=== PATIENT | male | born 1990 | race Caucasian/White ===

== ENCOUNTER 2020-09-23 18:23 | Emergency (ER) | payer OTHER, SELFPAY ==
[2020-09-23 18:34] VITALS: BP 154/88; PULSE 72; RESP 14; TEMP 36.8; O2SAT 98; BMI 23.0
--- NOTE | 2020-09-23 18:38 | ED_ITS ---
HPI - Recheck/Abnormal Lab/Rx General Chief Complaint: Recheck/Abnormal Lab/Rx Stated Complaint: runny nose, dry throat, loss of sense of smell Time Seen by Provider: 09/23/20 18:38 Source: patient Mode of arrival: Ambulatory Limitations: no limitations History of Present Illness HPI narrative: 29M non smoker with no medical problems presents with mild headache, scratchy throat and loss of smell today. He is concerned about COVID. He denies known exposure. He's had no fever, chills, cough, or trouble breathing, in fact he's been skiing at [employer] this week and ran 7 miles yesterday without trouble. He's had no GI symptoms such as pain, N/V/D. He has travelled here from his home in [place] a week or so ago. He was driving with a few friends who commented on the strong smell from a marijuana shop and not iced that he couldn't smell it at all which caused him concern. Related Data Allergies Allergy/AdvReac Type Severity Reaction Status Date / Time No Known Drug Allergies Allergy Verified 09/23/20 18:37 Review of Systems Constitutional Constitutional: Denies chills, Denies fatigue, Denies fever(s), Denies frequent falls, Denies lethargy and Denies weakness Comments: headache Eyes Eyes: Denies change in vision, Denies eye discharge, Denies irritation and Denies loss of vision ENT Ears, Nose, Mouth, and Throat: Denies change in voice, Denies dizziness, Denies neck pain, Denies sore throat and Denies throat swelling Comments: loss of smell scratchy, but not painful throat Cardiovascular Cardiovascular: Denies chest pain, Denies irregular heart rhythm, Denies lightheadedness, Denies palpitations, Denies dyspnea, Denies dyspnea on exertion and Denies orthopnea Respiratory Respiratory: Denies cough, Denies dyspnea, Denies dyspnea on exertion and Denies wheezing Gastrointestinal Gastrointestinal: Denies abdominal pain, Denies change in bowel habits, Denies diarrhea, Denies nausea and Denies vomiting Musculoskeletal Musculoskeletal: Denies neck pain and Denies numbness Integumentary/Breasts Skin/Breast: Denies pruritus, Denies erythema, Denies rash and Denies wounds Neurologic Neurologic: Denies behavioral changes, Denies confusion, Denies dizziness, Denies frequent falls, Denies loss of vision, Denies numbness and Denies weakness Psychiatric Psychiatric: Denies anxiety, Denies behavioral changes, Denies confusion, Denies depression, Denies homicidal ideation and Denies suicidal ideation Endocrine Endocrine: Denies fatigue, Denies flushing and Denies palpitations Hematologic/Lymphatic Hematologic/Lymphatic: Denies easy bruising Allergic/Immunologic Allergic/Immunologic: Denies urticaria, Denies throat swelling and Denies wheezing Patient History Social History Smoking Status: Never smoker Smoking Status: Never smoker alcohol intake frequency: holidays/special occasions only Substance Use Type: does not use Exam Narrative Exam Narrative: GEN: AOx3 and in mild distress EYES: Pupils are equal, round, and reactive to light and accommodation. Extraoccular muscles are intact bilaterally. There is no subconjunctival hemorrhage or exudate. CHEST: Lungs are clear to auscultation bilaterally and free of wheezes, rales, or rhonchi. Heart rate is regular rhythm, there are no murmurs, clicks, rubs, or gallops. There is no chest wall tenderness. ABD: Abdomen is soft and nontender. There is no guarding or rebound. Bowel sounds are normal in all 4 quadrants. There is no mass or organomegaly. EXT: Full painless ROM of all extremities with no loss of sensation or strength. SKIN: Warm, pink, and dry. No erythema or rash Initial Vital Signs Initial Vital Signs: Vital Signs Temperature 98.2 F 09/23/20 18:34 Pulse Rate 72 09/23/20 18:34 Respiratory Rate 14 09/23/20 18:34 Blood Pressure 154/88 H 09/23/20 18:34 Pulse Oximetry 98 09/23/20 18:34 Course Orders Ordered: ED Orders 09/23/20 18:30 COVID19 Stat Vital Signs Vital signs: Vital Signs - 8 hr 09/23/20 18:34 Temperature 98.2 F Pulse Rate 72 Respiratory Rate 14 Blood Pressure 154/88 H Pulse Oximetry 98 MDM - Recheck/Abnormal Lab/Rx Lab Data Labs: Lab Results 09/23/20 Range/Units 18:30 COVID-19 PCR Positive H (Negative) MDM Narrative Medical decision making narrative: no significant risk factors. No respiratory complaints. Normal lung sounds and work of breathing. Normal labs. Extensive discussion with isolation protocol. Strongly encouraged not to fly until return to work criteria are met. He understands diagnosis and agrees with plan. Discharge Plan Departure Patient Disposition: Home Clinical Impression: COVID-19 Instructions: Coronavirus Disease 2019 Activity Restrictions/Additional Instructions: *You have been diagnosed with [ COVID-19] *What to do: Begin taking Aspirin 81mg daily to help decrease viral replication and some of the clotting problems associated with COVID *Please consider orderd a pulse ox to monitor your oxygen levels at home. A drop in oxygen level below 95% would indicate a need for re-evaluation * per recommendations from the CDC and the [facility] Department of Health * stay home except to get medical care. Restrict activities outside your home, except for getting medical care. Do not go to work, school, or public areas. Avoid using public transportation, ride sharing, or taxis. * separate yourself from other people in your home. * call ahead before visiting your doctor * Wear a facemask * Cover your coughs and sneezes * Clean your hands often * Avoid sharing household items * Clean all high-touch services every day * Monitor your symptoms and seek prompt medical attention if your illness is worsening, particularly with difficulty in breathing. You may discontinue your isolation when: 1. You have been fever-free for at least 24 hours without the use of fever reducing medication, AND 2. Your symptoms are getting better 3. At least 10 days have passed since symptoms first appeared Individuals with laboratory confirmed COVID-19 who have not had any symptoms may discontinue home isolation when at least 10 days have passed since the date of their first COVID-19 diagnostic test and have had no subsequent illness
--- NOTE | 2020-09-23 18:42 | PC.NURSE ---
Patient reports noticed loss of smell over last few days and wants to be checked for covid. Denies fever, chills, nausea, shortness or breath, or nasal congestion. Affirms sort of a scratchy throat but denies difficulty swallowing. Patient states I don't feel bad I ran 7 miles yesterday.
[2020-09-23 19:01] LABS: COVID19 -Nasal RAPID POSITIVE (Negative)
== END 2020-09-23 19:14 | disposition home or self-care (01) ==
PROVIDERS: Emergency Provider Emergency Medicine
DX: U07.1 COVID-19 (principal)
CPT/HCPCS: 87635; 99281; 99282